=== PATIENT | male | born 1985 | race African-American/Black ===

== ENCOUNTER 2018-07-11 06:58 | Day surgery (SDC) | payer OTHER ==
[2018-07-10 15:28] VITALS: BMI 36.8
[2018-07-11] MEDS ORDERED: LIDOCAINE HCL 1%, 10 MG/ML (20ML VIAL) ONE (07:39)
[2018-07-11] MEDS ORDERED: BUPIVACAINE HCL/PF 0.5% (5MG/ML) 10 ML VIAL ONE (07:40)
[2018-07-11] MEDS ORDERED: MIDAZOLAM HCL 2 MG/2 ML SINGLE DOSE VIAL ONE ×2 (08:00)
--- NOTE | 2018-07-11 08:06 | OP ---
Operative Note - Note: Operative Date: 07/11/18 Pre-Operative Diagnosis: elective sterilization Operation: bilateral vasectomy Findings: nl anatomy Surgeon: Kobe Ivey Anesthesiologist/PROPERTY PRESERVATION SPECIALIST: Kady Perkins MD Anesthesia: General, Local Specimens Removed: portion of bilat vas deferens Estimated Blood Loss (mls): 0 Operative Report Dictated: Yes
[2018-07-11] MEDS ORDERED: PROPOFOL 20 ML ONE (08:09)
[2018-07-11] MEDS ORDERED: SUCCINYLCHOLINE CHLORIDE 200 MG/10 ML VIAL ONE (08:09)
[2018-07-11] MEDS ORDERED: BUPIVACAINE HCL/PF (5 MG/ML) 30 ML VIAL IJ ONE ×2 (08:29)
[2018-07-11] MEDS ORDERED: DEXAMETHASONE SOD PHOSPHATE 4 MG/1 ML VIAL ONE (08:31)
[2018-07-11] MEDS ORDERED: ceFAZolin SODIUM 1 GM VIAL ONE (08:31)
[2018-07-11] MEDS ORDERED: KETOROLAC TROMETHAMINE 30 MG/1 ML VIAL ONE (08:31)
[2018-07-11] MEDS ORDERED: LIDOCAINE HCL/PF 2% SDV 5ML VIAL ONE (08:31)
--- NOTE | 2018-07-11 09:40 | OP ---
DATE OF OPERATION: 07/11/2018 PREOPERATIVE DIAGNOSIS: Elective sterilization. POSTOPERATIVE DIAGNOSIS: Elective sterilization. PROCEDURE PERFORMED: Bilateral vasectomy. SURGEON: Kobe Mueller M.D. HOME HOUSEKEEPER: None. ANESTHESIA: General via laryngeal mask plus local. ANESTHESIOLOGIST: Kady Perkins M.D. SPECIMENS: Portions of bilateral vas deferens. CULTURES: None. DRAINS: None. ESTIMATED BLOOD LOSS: Negligible. COMPLICATIONS: None. DESCRIPTION OF PROCEDURE: The patient was brought into the operating room and placed on the operating table in the supine position. After the administration of general anesthesia via laryngeal mask, intravenous antibiotics were administered. The genitals were shaved first and then prepped and draped in the usual sterile manner. Then 5 mL of 0.5% Marcaine was injected into the neck of the scrotum into the spermatic cord on each side. The right vas deferens was now isolated between thumb and forefinger and a 1-cm transverse upper scrotal incision was made through the skin and dartos layer. The vas deferens was identified, grasped with a sharp towel clip and elevated. The sheath of the vas deferens was now incised longitudinally. The vas deferens was now dissected out with a mosquito clamp, elevated and then divided between clamps. A segment was excised and sent to Pathology as specimen. The lumen of the vas deferens was cauterized with the needle-tipped Bovie. Both cut ends of the vas deferens were ligated with 0 silk ties. Hemostasis was assured. The vas deferens was now replaced in the scrotum and the skin was closed with interrupted 4-0 chromic vertical mattress sutures. In identical manner, the left side was done. Dermabond was applied. A sterile compressive dressing was placed, with mesh pant underpants. He tolerated the procedure well. He was awoken from anesthesia in the operating room was transferred to the recovery room in stable condition. KOBE MUELLER M.D. VANESSA/[id number]
[2018-07-11 10:24] VITALS: TEMP 97.6
[2018-07-11 13:37] VITALS: BP 113/79; PULSE 75
--- NOTE | 2018-07-12 15:49 | PATH ---
Surgical Pathology Report Patient Name: ACE CHIANG Med. Rec. #: [id number] /Age/Gender: 1985 (Age: 33) / M Account: [id number] Location: [facility] SUR[facility]ICAL Taken: 07/11/2018 Received: 07/11/2018 Reported: 07/12/2018 Physicians: Kobe Ivey M.D. Specimen(s) Received A: PORTION RIGHT VAS DEFERENS B: PORTION LEFT VAS DEFERENS Clinical History Vasectomy evaluation Final Diagnosis A. PORTION OF RIGHT VAS DEFERENS, VASECTOMY: COMPLETE CROSS SECTION OF THE VAS DEFERENS LUMEN IDENTIFIED. B. PORTION OF LEFT VAS DEFERENS, VASECTOMY: COMPLETE CROSS SECTION OF THE VAS DEFERENS LUMEN IDENTIFIED. SEE COMMENT. Comment: The lumen shows focal denuded lining epithelium. AE1/AE3 (performed and interpreted at [facility]) highlighted the remaining lining epithelium. Positive and negative controls (internal if applicable) show appropriate results. Electronically Signed Daria Saucedo M.D. Gross Description A. Received in formalin labeled "portion right vas deferens," is a 0.3 cm in length tubular structure, consistent with a portion of vas deferens. The specimen is submitted in toto in one cassette. B. Received in formalin labeled "left portion of vas deferens," is a 0.3 cm in length tubular structure, consistent with a portion of vas deferens. The specimen is submitted in toto in one cassette. /07/11/2018 saudi07/11/2018
== END 2018-07-11 13:37 | disposition home or self-care (01) ==
LOC: JASU-SURG 06:58
PROVIDERS: ATTEND Urology
PROC: 0VTQ0ZZ Resection of Bilateral Vas Deferens, Open Approach (ICD-10-PCS; principal; 2018-07-11 08:00)
DX: Z30.2 Encounter for sterilization (principal)
CPT/HCPCS: 88302-TC; 88342-TC; 94760